=== PATIENT | male | born 1955 | race African-American/Black ===

== ENCOUNTER 2018-03-12 11:06 | Day surgery (SDC) | payer BC, OTHER ==
[~2018-03-12] VITALS: Ht 195.6 cm; Wt 96.0 kg
[2018-03-12 11:34] LABS: BASOPHILS % 0.4 % (0.0-2.0); EOSINOPHILS % 0.6 % (0.0-5.0); HEMOGLOBIN. 12.9 g/dL (14.0-18.0); LYMPHOCYTES % 23.5 % (20.0-50.0); MEAN CORPUSCULAR HEMOGLOBIN 34.5 pg (28.0-32.0); MEAN CORPUSCULAR VOLUME 98.9 fL (80.0-94.0); MEAN PLATELET VOLUME 7.4 fl (7.4-10.4); MONOCYTES % 9.9 % (2.0-8.0); NEUTROPHILS % 65.6 % (40.0-76.0); PLATELET 224 x1000/uL (130-400); RED BLOOD CELL COUNT 3.74 mill/uL (4.7-6.1); RED CELL DISTRIBUTION WIDTH 13.5 % (11.6-14.6)
[2018-03-12 11:39] LABS: CHLORIDE 111 mEq/L (98-107)
[2018-03-12 11:42] LABS: PARTIAL THROMBOPLASTIN TIME 23.5 sec (23.4-31.0); PROTHROMBIN TIME 10.5 sec (9.4-11.6)
[2018-03-12 11:56] VITALS: BP 151/101
[2018-03-12] MEDS ORDERED: PROPOFOL 200MG/20ML VIAL IV ONE (12:31)
[2018-03-12] MEDS ORDERED: FENTANYL CITRATE/PF 50MCG/ML 2ML VIAL ONE (12:31)
[2018-03-12] MEDS ORDERED: GLYCOPYRROLATE 0.2 MG/ML 2ML VIAL ONE (12:32)
[2018-03-12] MEDS ORDERED: MIDAZOLAM HCL 2 MG/2 ML VIAL ONE ×2 (12:32→12:51)
[2018-03-12] MEDS ORDERED: TRIAMCINOLONE ACETONIDE 40MG/ML 1ML VIAL ONE (12:33)
[2018-03-12] MEDS ORDERED: LIDOCAINE HCL/PF 1% 10 MG/ML 5ML VIAL ONE (12:43)
[2018-03-12] MEDS ORDERED: DEXAMETHASONE 4MG/ML 1ML VIAL ONE (12:55)
[2018-03-12] MEDS ORDERED: CEFAZOLIN SODIUM 1000MG/VIAL ONE (12:55)
[2018-03-12] MEDS ORDERED: EPINEPHRINE 1:1000 1 MG/ML AMP ONE (13:08)
[2018-03-12] MEDS ORDERED: SODIUM CHLORIDE 0.9% 1,000 ML IV ONE (13:18)
[2018-03-12] MEDS ORDERED: LABETALOL HCL 5MG/ML VIAL 20ML IV ONE (13:19)
[2018-03-12] MEDS ORDERED: ONDANSETRON HCL 4MG/2ML VIAL IV PRN (13:30)
[2018-03-12] MEDS ORDERED: LIDOCAINE HCL 2%/EPINEPHRINE 1:100,000 20 ML VIAL INFIL ONE (15:14)
[2018-03-12] MEDS ORDERED: NEO/POLYMYX B SULF/DEXAMETH OPHTH OINT 3.5GM ONE (15:14)
[2018-03-12] MEDS ORDERED: BALANCED SALT IRRIG SOLN 15ML ONE (15:14)
[2018-03-12] MEDS ORDERED: ACETYLCHOLINE CHLORIDE INTRAOCULAR SOLUTION 1:100 ELECTROLYTE DILUENT IO ONE (15:14)
[2018-03-12] MEDS ORDERED: PREDNISOLONE ACETATE 1% OPHTH DROPS 1ML ONE (15:14)
[2018-03-12] MEDS ORDERED: BUPIVACAINE HCL/PF 0.75% (7.5MG/ML) 10ML ONE (15:14)
[2018-03-12] MEDS ORDERED: TETRACAINE 0.5% OPHTH DROPS 4ML ONE (15:14)
[2018-03-12] MEDS ORDERED: CIPROFLOXACIN 0.3% OPHTH SOLN 2.5ML ONE (15:14)
== END 2018-03-12 13:20 | disposition home or self-care (01) ==
LOC: ER 11:41 → OR 12:00 → ER 12:09 → OR 13:20 → CANBEDREQ 16:17
PROVIDERS: ATTEND Ophthalmology
DX: E11.39 Type 2 diabetes mellitus with other diabetic ophthalmic complication (principal); H40.89 Other specified glaucoma; I10 Essential (primary) hypertension; Z88.0 Allergy status to penicillin; Z79.899 Other long term (current) drug therapy; Z98.890 Other specified postprocedural states; Z79.01 Long term (current) use of anticoagulants
CPT/HCPCS: 36415; 66170; 71045; 80053; 85025; 85610; 85730; 93005; J0690; J1100; J2250; J3010; J3301; J3490; J2704

== ENCOUNTER 2018-11-02 17:01 | Inpatient (IN) | payer OTHER ==
[~2018-11-02] VITALS: Ht 195.6 cm; Wt 91.9 kg
[~2018-11-02 17:01] MED LIST: AMLO10TA80 MT; BIMA2.5D4 EACHEYE; BRIM10DR2 EACHEYE; DORZ10DR9 EACHEYE; METH50TA5 PO; PRED10TA23 MT; SULF500T8 PO
[2018-11-02] MEDS ORDERED: AZAT50TA24 MT (17:42)
[2018-11-02] MEDS ORDERED: METF-414 MT (17:42)
[2018-11-02 22:59] LABS: BASOPHILS % 0.1 % (0.0-2.0); EOSINOPHILS % 0.1 % (0.0-5.0); HEMATOCRIT. 31.9 % (42.0-52.0); HEMOGLOBIN. 10.5 g/dL (14.0-18.0); LYMPHOCYTES % 6.8 % (20.0-50.0); MEAN CORPUSCULAR HEMOGLOBIN 34.1 pg (28.0-32.0); MEAN CORPUSCULAR VOLUME 103.5 fL (80.0-94.0); MEAN PLATELET VOLUME 7.4 fl (7.4-10.4); MONOCYTES % 6.1 % (2.0-8.0); NEUTROPHILS % 86.9 % (40.0-76.0); PLATELET 152 x1000/uL (130-400); RED BLOOD CELL COUNT 3.08 mill/uL (4.7-6.1); RED CELL DISTRIBUTION WIDTH 16.1 % (11.6-14.6)
[2018-11-02 23:01] LABS: CLARITY URINE TURBID (CLEAR); COLOR URINE ORANGE (YELLOW); KETONES URINE NEGATIVE (NEGATIVE); LEUKOCYTE ESTERASE URINE 2+ (NEGATIVE); NITRITE URINE POSITIVE (NEGATIVE); OCCULT BLOOD URINE 2+ (NEGATIVE); PROTEIN URINE 2+ (NEGATIVE); SPECIFIC GRAVITY URINE 1.021 (1.005-1.030); UROBILINOGEN URINE 0.2 E.U./dL (0.2-1.0)
[2018-11-02 23:02] LABS: CHLORIDE 105 mEq/L (98-107)
[2018-11-02 23:05] LABS: INR 1.1; PROTHROMBIN TIME 11.3 sec (9.1-11.1)
[2018-11-03] MEDS ORDERED: IOHEXOL-300 100 ML BOTTLE ONE (04:47)
[2018-11-03] MEDS ORDERED: PIPERACILLIN/TAZ 3.375G PREMIX 50 ML IV ONE (05:15)
[2018-11-03] MEDS ORDERED: HEPARIN 25,000 UNITS PREMIX 500 ML IV PRN (06:45)
[2018-11-03] MEDS ORDERED: HEPARIN 5000 UNITS/ML VIAL IV SCH (06:45)
[2018-11-03] MEDS ORDERED: HEPARIN 5000 UNITS/ML VIAL IV ONE (07:30)
[2018-11-03] MEDS ORDERED: MAGNESIUM/ALUMINUM HYDROXIDE/SIMETHICONE 30ML UDC PO PRN (10:00)
[2018-11-03] MEDS ORDERED: SENNOSIDES/DOCUSATE SOD 8.6/50MG TABLET PO PRN (10:00)
[2018-11-03] MEDS ORDERED: ONDANSETRON HCL 4MG/2ML INJ IV PRN (10:00)
[2018-11-03] MEDS ORDERED: HYDROCODONE/ACETAMINOPHEN 5/325MG TABLET PO PRN (10:00)
[2018-11-03] MEDS ORDERED: CLONIDINE 0.1MG TABLET PO PRN (10:00)
[2018-11-03] MEDS ORDERED: ACETAMINOPHEN 325MG TABLET PO PRN (10:00)
[2018-11-03] MEDS ORDERED: IPRATROPIUM/ALBUTEROL 0.5-3(2.5)MG/3ML NEB INH PRN (10:00)
[2018-11-03 10:38] LABS: INR 1.1; PARTIAL THROMBOPLASTIN TIME 27.3 sec (23.4-31.0); PROTHROMBIN TIME 11.5 sec (9.1-11.1)
[2018-11-03] MEDS ORDERED: PIPERACILLIN/TAZ 3.375G PREMIX 50 ML IV SCH (11:30)
[2018-11-03 14:43] VITALS: BP 134/93
[2018-11-03] MEDS ORDERED: IOHEXOL-350 100 ML BOTTLE ONE (15:14)
[2018-11-03] MEDS: PANTOPRAZOLE SODIUM 40 MG/VIAL IV SCH (16:34)
[2018-11-03] MEDS: PREDNISONE 10MG TABLET PO SCH (16:35)
[2018-11-03] MEDS: AZATHIOPRINE 50MG TABLET PO SCH (16:35)
[2018-11-03] MEDS: SULFASALAZINE 500MG TABLET PO SCH ×2 (16:35→21:10)
[2018-11-03] MEDS: FERROUS SULFATE 325MG TABLET PO SCH (16:35)
[2018-11-03] MEDS: BRIMONIDINE 0.2% OPHTH DROPS 5ML RIGHTEYE SCH ×2 (16:39→21:12)
[2018-11-03] MEDS: DORZOLAMIDE 2% OPHTH 10 ML BOTTLE RIGHTEYE SCH ×2 (16:42→21:12)
[2018-11-03] MEDS: LEVOFLOXACIN 500MG PREMIX 100 ML IV SCH (16:43)
[2018-11-03 18:00] VITALS: BP 119/85
[2018-11-03 20:48] VITALS: BP 142/85
[2018-11-03] MEDS: METHAZOLAMIDE 50MG TABLET PO SCH (21:10)
[2018-11-03] MEDS: LATANOPROST 0.005% OPHTH DROPS 2.5ML RIGHTEYE SCH (21:11)
[2018-11-03] MEDS: TIMOLOL MALEATE 0.25% OPHTH DROPS 5ML RIGHTEYE SCH (21:11)
[2018-11-03 22:00] VITALS: BP 128/79
[2018-11-04] VITALS (12 sets, daily range): BP systolic 129–159; BP diastolic 76–98
[2018-11-04] MEDS: BRIMONIDINE 0.2% OPHTH DROPS 5ML RIGHTEYE SCH ×3 (06:03→21:47)
[2018-11-04] MEDS: DORZOLAMIDE 2% OPHTH 10 ML BOTTLE RIGHTEYE SCH ×3 (06:03→21:47)
[2018-11-04 06:25] LABS: BASOPHILS % 0.1 % (0.0-2.0); EOSINOPHILS % 0.3 % (0.0-5.0); HEMATOCRIT. 29.1 % (42.0-52.0); HEMOGLOBIN. 9.6 g/dL (14.0-18.0); LYMPHOCYTES % 9.9 % (20.0-50.0); MEAN CORPUSCULAR HEMOGLOBIN 34.1 pg (28.0-32.0); MEAN CORPUSCULAR VOLUME 102.9 fL (80.0-94.0); MEAN PLATELET VOLUME 7.3 fl (7.4-10.4); MONOCYTES % 9.2 % (2.0-8.0); NEUTROPHILS % 80.5 % (40.0-76.0); PLATELET 144 x1000/uL (130-400); RED BLOOD CELL COUNT 2.83 mill/uL (4.7-6.1); RED CELL DISTRIBUTION WIDTH 15.7 % (11.6-14.6)
[2018-11-04 06:26] LABS: CHLORIDE 106 mEq/L (98-107)
[2018-11-04 06:33] LABS: LDL CHOLESTEROL 156 mg/dL (5-100)
[2018-11-04 06:34] LABS: T4 FREE 0.93 ng/dL (0.76-1.46)
[2018-11-04 06:35] LABS: HDL CHOLESTEROL 52 mg/dL (40-59)
[2018-11-04] MEDS ORDERED: OMEPRAZOLE 20MG CAPSULE EXTENDED RELEASE PO SCH (06:50)
[2018-11-04] MEDS: SULFASALAZINE 500MG TABLET PO SCH ×4 (09:12→21:47)
[2018-11-04] MEDS: DOCUSATE SODIUM 100MG CAPSULE PO PRN ×2 (09:12→17:23)
[2018-11-04] MEDS: PREDNISONE 10MG TABLET PO SCH (09:12)
[2018-11-04] MEDS: AMLODIPINE 10MG TABLET PO SCH (09:12)
[2018-11-04] MEDS: AZATHIOPRINE 50MG TABLET PO SCH (09:12)
[2018-11-04] MEDS: METHAZOLAMIDE 50MG TABLET PO SCH ×2 (09:12→21:46)
[2018-11-04] MEDS: PANTOPRAZOLE SODIUM 40 MG/VIAL IV SCH (09:12)
[2018-11-04] MEDS: FERROUS SULFATE 325MG TABLET PO SCH ×3 (09:13→17:23)
[2018-11-04] MEDS: TIMOLOL MALEATE 0.25% OPHTH DROPS 5ML RIGHTEYE SCH ×2 (09:14→21:47)
[2018-11-04] MEDS ORDERED: LOSARTAN POTASSIUM 25 MG TABLET PO SCH (15:00)
[2018-11-04] MEDS: LEVOFLOXACIN 500MG PREMIX 100 ML IV SCH (16:28)
[2018-11-04] MEDS ORDERED: DEXTROSE 50% WATER 50ML SYRINGE IV PRN (16:30)
[2018-11-04] MEDS: BLOOD SUGAR DIAGNOSTIC STRIP TEST SCH ×2 (17:09→21:48)
[2018-11-04] MEDS: INSULIN LISPRO 100 UNITS/ML SUBCUT SCH ×2 (17:14→21:00)
[2018-11-04] MEDS: MESALAMINE 400 MG CAPSULE.DR PO SCH (17:20)
[2018-11-04] MEDS ORDERED: ATORVASTATIN CALCIUM 20MG TABLET PO SCH (21:00)
[2018-11-04] MEDS: LOSARTAN POTASSIUM 50 MG TABLET PO SCH (21:47)
[2018-11-04] MEDS: LATANOPROST 0.005% OPHTH DROPS 2.5ML RIGHTEYE SCH (21:48)
[2018-11-05] VITALS (11 sets, daily range): BP systolic 109–158; BP diastolic 64–99
[2018-11-05] MEDS: BRIMONIDINE 0.2% OPHTH DROPS 5ML RIGHTEYE SCH ×2 (06:40→14:00)
[2018-11-05] MEDS: BLOOD SUGAR DIAGNOSTIC STRIP TEST SCH ×2 (06:40→11:41)
[2018-11-05] MEDS: DORZOLAMIDE 2% OPHTH 10 ML BOTTLE RIGHTEYE SCH ×2 (06:40→14:00)
[2018-11-05 06:46] LABS: BASOPHILS % 0.4 % (0.0-2.0); EOSINOPHILS % 1.2 % (0.0-5.0); HEMATOCRIT. 33.5 % (42.0-52.0); LYMPHOCYTES % 18.4 % (20.0-50.0); MEAN CORPUSCULAR HEMOGLOBIN 33.9 pg (28.0-32.0); MEAN CORPUSCULAR VOLUME 103.2 fL (80.0-94.0); MEAN PLATELET VOLUME 7.8 fl (7.4-10.4); MONOCYTES % 7.7 % (2.0-8.0); NEUTROPHILS % 72.3 % (40.0-76.0); PLATELET 171 x1000/uL (130-400); RED BLOOD CELL COUNT 3.25 mill/uL (4.7-6.1); RED CELL DISTRIBUTION WIDTH 15.3 % (11.6-14.6)
[2018-11-05 06:51] LABS: CHLORIDE 105 mEq/L (98-107)
[2018-11-05] MEDS: INSULIN LISPRO 100 UNITS/ML SUBCUT SCH ×2 (07:20→12:20)
[2018-11-05] MEDS: FERROUS SULFATE 325MG TABLET PO SCH ×2 (08:16→13:59)
[2018-11-05] MEDS: PANTOPRAZOLE SODIUM 40 MG/VIAL IV SCH (08:16)
[2018-11-05] MEDS: LOSARTAN POTASSIUM 50 MG TABLET PO SCH (08:16)
[2018-11-05] MEDS: METHAZOLAMIDE 50MG TABLET PO SCH (08:16)
[2018-11-05] MEDS: MESALAMINE 400 MG CAPSULE.DR PO SCH ×2 (08:16→13:59)
[2018-11-05] MEDS: AMLODIPINE 10MG TABLET PO SCH (08:16)
[2018-11-05] MEDS: SULFASALAZINE 500MG TABLET PO SCH ×2 (08:17→13:59)
[2018-11-05] MEDS: TIMOLOL MALEATE 0.25% OPHTH DROPS 5ML RIGHTEYE SCH (08:17)
[2018-11-05] MEDS: AZATHIOPRINE 50MG TABLET PO SCH (08:17)
[2018-11-05 08:24] LABS: HAPTOGLOBIN 276 mg/dL (30-200)
[2018-11-05] MEDS ORDERED: PREDNISONE 20MG TABLET PO SCH (09:00)
[2018-11-10] MEDS ORDERED: FERR300S PO (22:43)
[2018-11-10] MEDS ORDERED: OMEP20CA10 PO (22:43)
[2018-11-10] MEDS ORDERED: BRIM10DR2 OP (22:43)
[2018-11-10] MEDS ORDERED: SENN-155 PO (22:43)
[2018-11-10] MEDS ORDERED: ATOR20TA65 PO (22:43)
[2018-11-10] MEDS ORDERED: LATA2.5D2 EACHEYE (22:43)
== END 2018-11-05 16:10 | disposition home or self-care (01) | DRG 690 ==
LOC: ER 17:05 → EDBEDREQSVC 11-03 05:22 → EDBEDREQTM 11-03 05:22 → 3WST 11-03 13:40 → EDBEDREQSVC 11-03 13:42 → ENRESERV 11-03 13:49
PROVIDERS: ADMIT Internal Medicine; ATTEND Internal Medicine
DX: N13.6 Pyonephrosis (principal); K51.911 Ulcerative colitis, unspecified with rectal bleeding; D68.9 Coagulation defect, unspecified; E11.9 Type 2 diabetes mellitus without complications; D53.9 Nutritional anemia, unspecified; E78.5 Hyperlipidemia, unspecified; H40.9 Unspecified glaucoma; I10 Essential (primary) hypertension; I25.10 Atherosclerotic heart disease of native coronary artery without angina pectoris; R31.0 Gross hematuria; K40.90 Unilateral inguinal hernia, without obstruction or gangrene, not specified as recurrent; N40.1 Benign prostatic hyperplasia with lower urinary tract symptoms; I86.1 Scrotal varices; Z79.52 Long term (current) use of systemic steroids; Z86.711 Personal history of pulmonary embolism; Z86.718 Personal history of other venous thrombosis and embolism; Z88.0 Allergy status to penicillin; Z79.84 Long term (current) use of oral hypoglycemic drugs; Z79.899 Other long term (current) drug therapy
CPT/HCPCS: 36415; 71045; 71275; 74176; 74177; 76870; 80048; 80061; 82962; 83010; 83615; 84439; 84443; 84481; 93005; 93306; 93970; 93976; 96365; 96375; 99285; C9113; J1644; J1956; J2543; J7040; J7050; J7500; J7512; Q9967

== ENCOUNTER 2018-11-27 15:13 | Emergency (ER) | payer OTHER ==
[~2018-11-27] VITALS: Ht 195.6 cm; Wt 90.0 kg
[~2018-11-27 15:13] MED LIST changes: +ATOR20TA65 PO; +AZAT50TA24 MT; -BIMA2.5D4 EACHEYE; -BRIM10DR2 EACHEYE; +BRIM10DR2 OP; -DORZ10DR9 EACHEYE; +FERR300S PO; +LATA2.5D2 EACHEYE; +OMEP20CA10 PO; +SENN-155 PO
[2018-11-27 17:10] LABS: HEMATOCRIT. 25.9 % (42.0-52.0); HEMOGLOBIN. 8.7 g/dL (14.0-18.0); MEAN CORPUSCULAR HEMOGLOBIN 34.6 pg (28.0-32.0); MEAN CORPUSCULAR VOLUME 102.4 fL (80.0-94.0); MEAN PLATELET VOLUME 6.8 fl (7.4-10.4); PLATELET 292 x1000/uL (130-400); RED BLOOD CELL COUNT 2.53 mill/uL (4.7-6.1); RED CELL DISTRIBUTION WIDTH 15.7 % (11.6-14.6)
[2018-11-27 17:17] LABS: CHLORIDE 105 mEq/L (98-107); INR 1.1; PROTHROMBIN TIME 10.8 sec (9.1-11.1)
[2018-11-27 17:34] LABS: PLATELET ESTIMATE NORMAL
[2018-11-27 18:18] LABS: CLARITY URINE CLEAR (CLEAR); COLOR URINE ORANGE (YELLOW); KETONES URINE NEGATIVE (NEGATIVE); LEUKOCYTE ESTERASE URINE TRACE (NEGATIVE); NITRITE URINE NEGATIVE (NEGATIVE); OCCULT BLOOD URINE 3+ (NEGATIVE); PH URINE 5.5 (4.5-8.0); PROTEIN URINE 1+ (NEGATIVE); SPECIFIC GRAVITY URINE 1.007 (1.005-1.030); UROBILINOGEN URINE 0.2 E.U./dL (0.2-1.0)
[2018-11-27 19:42] VITALS: BP 125/79
== END 2018-11-27 19:43 | disposition home or self-care (01) ==
LOC: ER 15:13
DX: M79.89 Other specified soft tissue disorders (principal); I10 Essential (primary) hypertension; Z88.0 Allergy status to penicillin; Z86.718 Personal history of other venous thrombosis and embolism
CPT/HCPCS: 36415; 93970; 99284

== ENCOUNTER 2019-01-28 08:33 | Emergency (ER) | payer OTHER | END 2019-01-28 09:05 | disposition left against medical advice (07) | LOC: ER 08:55 | DX: H57.89 Other specified disorders of eye and adnexa (principal); Z53.21 Procedure and treatment not carried out due to patient leaving prior to being seen by health care provider ==

== ENCOUNTER 2019-03-16 17:03 | Inpatient (IN) | payer MEDICAID, OTHER ==
[~2019-03-16] VITALS: Ht 195.6 cm; Wt 79.8 kg
[2019-03-16] MEDS ORDERED: SODIUM CHLORIDE 0.9% 1,000 ML IV ONE (18:35)
[2019-03-16] MEDS ORDERED: KETOROLAC 30MG/ML VIAL IV STA (18:35)
[2019-03-16] MEDS ORDERED: ONDANSETRON HCL 4MG/2ML INJ IV STA (18:35)
[2019-03-16] MEDS ORDERED: MORPHINE SULFATE 4 MG/ML CPJ (NOT FOR IM USE) IV STA (18:35)
[2019-03-16 18:52] LABS: BASOPHILS % 0.7 % (0.0-2.0); EOSINOPHILS % 2.5 % (0.0-5.0); HEMATOCRIT. 35.3 % (42.0-52.0); HEMOGLOBIN. 12.1 g/dL (14.0-18.0); LYMPHOCYTES % 19.4 % (20.0-50.0); MEAN CORPUSCULAR HEMOGLOBIN 33.4 pg (28.0-32.0); MEAN CORPUSCULAR VOLUME 97.3 fL (80.0-94.0); MEAN PLATELET VOLUME 7.8 fl (7.4-10.4); MONOCYTES % 13.8 % (2.0-8.0); NEUTROPHILS % 63.6 % (40.0-76.0); PLATELET 284 x1000/uL (130-400); RED BLOOD CELL COUNT 3.63 mill/uL (4.7-6.1); RED CELL DISTRIBUTION WIDTH 15.2 % (11.6-14.6)
[2019-03-16 18:58] LABS: CHLORIDE 99 mEq/L (98-107)
[2019-03-16 19:01] LABS: INR 1.1; PARTIAL THROMBOPLASTIN TIME 35.5 sec (23.4-31.0); PROTHROMBIN TIME 11.5 sec (9.6-11.0)
[2019-03-16] MEDS ORDERED: LATA5DRO EACHEYE (19:04)
[2019-03-16] MEDS ORDERED: CARB15DR2 EACHEYE (19:04)
[2019-03-16] MEDS ORDERED: BRIM10DR2 EACHEYE (19:04)
[2019-03-16] MEDS ORDERED: NETA2.5D OP (19:04)
[2019-03-16 19:08] LABS: CREATINE KINASE 140 IU/L (39-308); CREATINE KINASE MB FRACTION 1.6 ng/mL (0.5-3.6); T4 FREE 1.41 ng/dL (0.76-1.46)
[2019-03-16] MEDS ORDERED: ONDANSETRON HCL 4MG/2ML INJ IV PRN (23:30)
[2019-03-16] MEDS ORDERED: MAGNESIUM/ALUMINUM HYDROXIDE/SIMETHICONE 30ML UDC PO PRN (23:30)
[2019-03-16] MEDS ORDERED: IPRATROPIUM/ALBUTEROL 0.5-3(2.5)MG/3ML NEB INH PRN (23:30)
[2019-03-16] MEDS ORDERED: CLONIDINE 0.1MG TABLET PO PRN (23:30)
[2019-03-16] MEDS ORDERED: ACETAMINOPHEN 325MG TABLET PO PRN (23:30)
[2019-03-16] MEDS ORDERED: DOCUSATE SODIUM 100MG CAPSULE PO PRN (23:30)
[2019-03-16] MEDS ORDERED: GUAIFENESIN 200MG/10ML SUGAR FREE UDC PO PRN (23:30)
[2019-03-16 23:53] LABS: CHLORIDE 102 mEq/L (98-107)
[2019-03-17 02:30] VITALS: BP 142/81
[2019-03-17] MEDS ORDERED: BRIM10DR2 EACHEYE (04:17)
[2019-03-17] MEDS ORDERED: FURO20TA4 MT (04:17)
[2019-03-17] MEDS ORDERED: TAMS0.4C31 PO (04:17)
[2019-03-17] MEDS ORDERED: APIX5TAB PO (04:17)
[2019-03-17] MEDS ORDERED: GABA300S PO (04:17)
[2019-03-17] MEDS ORDERED: METO100T16 PO (04:17)
[2019-03-17] MEDS ORDERED: CARB10DR EACHEYE (04:17)
[2019-03-17] MEDS: HYDROCODONE/ACETAMINOPHEN 5/325MG TABLET PO PRN (06:47)
[2019-03-17 07:28] LABS: BASOPHILS % 0.7 % (0.0-2.0); LYMPHOCYTES % 22.4 % (20.0-50.0); MEAN CORPUSCULAR HEMOGLOBIN 32.7 pg (28.0-32.0); MEAN CORPUSCULAR VOLUME 98.2 fL (80.0-94.0); MEAN PLATELET VOLUME 7.8 fl (7.4-10.4); MONOCYTES % 14.4 % (2.0-8.0); NEUTROPHILS % 58.5 % (40.0-76.0); PLATELET 269 x1000/uL (130-400); RED BLOOD CELL COUNT 3.36 mill/uL (4.7-6.1); RED CELL DISTRIBUTION WIDTH 14.9 % (11.6-14.6)
[2019-03-17 07:40] LABS: LDL CHOLESTEROL 142 mg/dL (5-100)
[2019-03-17 07:41] LABS: CREATINE KINASE 162 IU/L (39-308)
[2019-03-17 07:42] LABS: HDL CHOLESTEROL 35 mg/dL (40-59)
[2019-03-17 07:43] LABS: CREATINE KINASE MB FRACTION 1.8 ng/mL (0.5-3.6)
[2019-03-17 07:44] LABS: T4 FREE 1.27 ng/dL (0.76-1.46)
[2019-03-17 08:00] VITALS: BP 116/69
[2019-03-17] MEDS: ASPIRIN 81MG EC TABLET PO SCH (08:41)
[2019-03-17 11:56] VITALS: BP 112/71
[2019-03-17] MEDS ORDERED: REGADENOSON 0.4 MG/5 ML IV ONE (14:30)
[2019-03-17 14:52] LABS: *AMPHETAMINES SCREEN URINE NEGATIVE (NEGATIVE); *BARBITURATES SCREEN URINE NEGATIVE (NEGATIVE); *COCAINE SCREEN URINE NEGATIVE (NEGATIVE)
[2019-03-17 14:53] LABS: *BENZODIAZEPINES SCREEN URINE NEGATIVE (NEGATIVE); METHADONE URINE SCREEN NEGATIVE (NEGATIVE); OPIATES URINE SCREEN PRESUMTIVE POSITIVE (NEGATIVE); PHENCYCLIDINE URINE SCREEN NEGATIVE (NEGATIVE)
[2019-03-17 14:54] LABS: CANNABINOID URINE SCREEN NEGATIVE (NEGATIVE)
[2019-03-17] MEDS ORDERED: AMLODIPINE 2.5MG TABLET PO SCH (15:00)
[2019-03-17 15:56] VITALS: BP 131/73
[2019-03-17 16:00] VITALS: BP 131/73
[2019-03-17 18:03] LABS: CREATINE KINASE 177 IU/L (39-308); CREATINE KINASE MB FRACTION 1.8 ng/mL (0.5-3.6)
[2019-03-17] MEDS: APIXABAN 5 MG TABLET PO SCH (18:04)
[2019-03-17 20:00] VITALS: BP 130/82
[2019-03-17] MEDS ORDERED: ATORVASTATIN CALCIUM 10MG TABLET PO SCH (21:00)
[2019-03-18] VITALS: BP 130/78
[2019-03-18 04:00] VITALS: BP 100/67
[2019-03-18] MEDS: HYDROCODONE/ACETAMINOPHEN 5/325MG TABLET PO PRN (04:50)
[2019-03-18 06:22] LABS: BASOPHILS % 0.5 % (0.0-2.0); EOSINOPHILS % 3.6 % (0.0-5.0); HEMATOCRIT. 32.5 % (42.0-52.0); HEMOGLOBIN. 11.3 g/dL (14.0-18.0); LYMPHOCYTES % 21.3 % (20.0-50.0); MEAN CORPUSCULAR HEMOGLOBIN 33.3 pg (28.0-32.0); MEAN CORPUSCULAR VOLUME 96.3 fL (80.0-94.0); MEAN PLATELET VOLUME 7.5 fl (7.4-10.4); MONOCYTES % 14.9 % (2.0-8.0); NEUTROPHILS % 59.7 % (40.0-76.0); PLATELET 272 x1000/uL (130-400); RED BLOOD CELL COUNT 3.38 mill/uL (4.7-6.1); RED CELL DISTRIBUTION WIDTH 14.8 % (11.6-14.6)
[2019-03-18 07:34] LABS: CHLORIDE 102 mEq/L (98-107)
[2019-03-18 08:00] VITALS: BP 115/78
[2019-03-18] MEDS: ASPIRIN 81MG EC TABLET PO SCH (09:00)
[2019-03-18] MEDS ORDERED: OMEPRAZOLE 20MG CAPSULE EXTENDED RELEASE PO SCH (09:00)
[2019-03-18] MEDS ORDERED: FUROSEMIDE 20MG TABLET PO SCH (09:00)
[2019-03-18] MEDS ORDERED: TAMSULOSIN HCL 0.4MG SR CAPSULE PO SCH (09:00)
[2019-03-18] MEDS ORDERED: SENNOSIDES 8.6MG TABLET PO SCH (09:00)
[2019-03-18] MEDS ORDERED: METHAZOLAMIDE 50MG TABLET PO SCH (09:30)
[2019-03-18] MEDS ORDERED: REGADENOSON 0.4 MG/5 ML IV ONE (09:32)
[2019-03-18] MEDS ORDERED: BRIMONIDINE 0.2% OPHTH DROPS 5ML BOTHEYE SCH (10:30)
[2019-03-18] MEDS ORDERED: AZATHIOPRINE 50MG TABLET PO SCH (11:00)
[2019-03-18] MEDS: SULFASALAZINE 500MG TABLET PO SCH ×2 (11:11→13:00)
[2019-03-18] MEDS: APIXABAN 5 MG TABLET PO SCH (11:17)
[2019-03-18] MEDS ORDERED: POTASSIUM CHLORIDE 20MEQ TABLET SR PO NR (11:30)
[2019-03-18 11:50] VITALS: BP 106/72
[2019-03-18] MEDS ORDERED: DILTIAZEM HCL 30MG TABLET PO SCH (12:00)
[2019-03-18] MEDS ORDERED: FERROUS SULFATE 325MG TABLET PO SCH (12:40)
[2019-03-18] MEDS ORDERED: GABAPENTIN 300MG CAPSULE PO SCH (14:00)
[2019-03-18 16:00] VITALS: BP 106/74
[2019-03-18 17:16] VITALS: BP 106/74
[2019-03-18] MEDS ORDERED: LATANOPROST 0.005% OPHTH DROPS 2.5ML EACHEYE SCH (21:00)
== END 2019-03-18 18:30 | disposition home or self-care (01) | DRG 206 ==
LOC: ER 18:13 → EDBEDREQ 18:39 → 8WST 22:00 → EDBEDREQ 22:03 → EDBEDREQTM 22:03 → ENRESERV 03-17 01:30
PROVIDERS: ADMIT Internal Medicine; ATTEND Internal Medicine
DX: M94.0 Chondrocostal junction syndrome [Tietze] (principal); K51.90 Ulcerative colitis, unspecified, without complications; I13.0 Hypertensive heart and chronic kidney disease with heart failure and stage 1 through stage 4 chronic kidney disease, or unspecified chronic kidney disease; I47.1 Supraventricular tachycardia; E78.5 Hyperlipidemia, unspecified; N18.9 Chronic kidney disease, unspecified; E03.9 Hypothyroidism, unspecified; I44.0 Atrioventricular block, first degree; I50.9 Heart failure, unspecified; D64.9 Anemia, unspecified; I45.10 Unspecified right bundle-branch block; H40.9 Unspecified glaucoma; N40.0 Benign prostatic hyperplasia without lower urinary tract symptoms; Z79.01 Long term (current) use of anticoagulants; Z95.828 Presence of other vascular implants and grafts; Z79.52 Long term (current) use of systemic steroids; Z86.711 Personal history of pulmonary embolism; Z86.718 Personal history of other venous thrombosis and embolism; Z87.442 Personal history of urinary calculi; Z79.899 Other long term (current) drug therapy; Z88.0 Allergy status to penicillin
CPT/HCPCS: 36415; 71045; 78452; 80048; 80061; 80305; 82533; 82550; 82553; 83880; 84439; 84443; 84481; 84484; 85651; 86431; 93005; 93017; 93306; 93970; 96374; 96375; 99285; A9500; J1885; J2270; J2405; J2785; J7030; J7500

== ENCOUNTER 2019-08-25 13:05 | Inpatient (IN) | payer OTHER ==
[~2019-08-25] VITALS: Ht 195.6 cm; Wt 89.8 kg
[~2019-08-25 13:05] MED LIST changes: +APIX5TAB PO; +BRIM10DR2 *; +BRIM10DR2 EACHEYE; +CARB10DR EACHEYE; +CARB15DR2 EACHEYE; +FURO20TA4 MT; +GABA300S PO; +LATA5DRO EACHEYE; +METO100T16 PO; +NETA2.5D OP; -OMEP20CA10 PO; +OMEP20CA5 PO; +PIPERACILLIN/TAZOBACTAM 3.375 G in DEXT 5% WATER 100 ML IV SCH; +TAMS0.4C31 PO
[2019-08-25] MEDS ORDERED: SODIUM CHLORIDE 0.9% 1,000 ML IV ONE (13:57)
[2019-08-25] MEDS ORDERED: ONDANSETRON HCL 4MG/2ML INJ IV STA (13:57)
[2019-08-25] MEDS ORDERED: KETOROLAC 30MG/ML VIAL IV STA (13:57)
[2019-08-25] MEDS ORDERED: MORPHINE SULFATE 4 MG/ML CPJ (NOT FOR IM USE) IV STA (13:57)
[2019-08-25 14:29] LABS: HEMATOCRIT. 33.3 % (42.0-52.0); HEMOGLOBIN. 11.3 g/dL (14.0-18.0); MEAN CORPUSCULAR HEMOGLOBIN 33.7 pg (28.0-32.0); MEAN CORPUSCULAR VOLUME 99.6 fL (80.0-94.0); MEAN PLATELET VOLUME 8.7 fl (7.4-10.4); PLATELET 240 x1000/uL (130-400); RED BLOOD CELL COUNT 3.35 mill/uL (4.7-6.1); RED CELL DISTRIBUTION WIDTH 12.9 % (11.6-14.6)
[2019-08-25 14:35] LABS: CHLORIDE 92 mEq/L (98-107)
[2019-08-25 14:39] LABS: ETHANOL BLOOD < 10 mg/dL
[2019-08-25 14:49] LABS: D-DIMER 16.91 mg/L FEU (<0.50); INR 2.3; PROTHROMBIN TIME 23.4 sec (9.6-11.0)
[2019-08-25] MEDS ORDERED: LEVOFLOXACIN 750MG PREMIX 150 ML IV ONE (15:00)
[2019-08-25] MEDS ORDERED: METRONIDAZOLE 500 MG PREMIX 100 ML IV ONE (15:00)
[2019-08-25] MEDS ORDERED: SODIUM CHLORIDE 0.9% 1000ML BAG (SEPSIS BOLUS) IV ONE (15:00)
[2019-08-25 15:07] LABS: PLATELET ESTIMATE NORMAL
[2019-08-25] MEDS ORDERED: HYDROCODONE/ACETAMINOPHEN 5/325MG TABLET PO PRN (17:45)
[2019-08-25] MEDS ORDERED: DOCUSATE SODIUM 100MG CAPSULE PO PRN (17:45)
[2019-08-25] MEDS ORDERED: LORAZEPAM 0.5MG TABLET PO PRN (17:45)
[2019-08-25] MEDS ORDERED: IPRATROPIUM/ALBUTEROL 0.5-3(2.5)MG/3ML NEB HHN PRN (17:45)
[2019-08-25] MEDS ORDERED: CLONIDINE 0.1MG TABLET PO PRN (17:45)
[2019-08-25 18:36] LABS: TOTAL IRON BINDING CAPACITY 173 ug/dL (250-450)
[2019-08-25 18:45] LABS: PROSTRATE SPECIFIC AG TOTAL 5.41 ng/mL (0.0-4.0)
[2019-08-25] MEDS ORDERED: IOHEXOL-300 100 ML BOTTLE ONE (19:05)
[2019-08-25 22:15] LABS: CLARITY URINE TURBID (CLEAR); COLOR URINE DARK YELLOW (YELLOW); KETONES URINE TRACE (NEGATIVE); LEUKOCYTE ESTERASE URINE 1+ (NEGATIVE); NITRITE URINE NEGATIVE (NEGATIVE); OCCULT BLOOD URINE 3+ (NEGATIVE); PROTEIN URINE 2+ (NEGATIVE)
[2019-08-25 22:41] LABS: *BARBITURATES SCREEN URINE NEGATIVE (NEGATIVE)
[2019-08-25 22:42] LABS: *AMPHETAMINES SCREEN URINE NEGATIVE (NEGATIVE); *BENZODIAZEPINES SCREEN URINE NEGATIVE (NEGATIVE); *COCAINE SCREEN URINE NEGATIVE (NEGATIVE); CANNABINOID URINE SCREEN NEGATIVE (NEGATIVE); METHADONE URINE SCREEN NEGATIVE (NEGATIVE); OPIATES URINE SCREEN PRESUMTIVE POSITIVE (NEGATIVE); PHENCYCLIDINE URINE SCREEN NEGATIVE (NEGATIVE)
[2019-08-25 23:36] VITALS: BP 118/72
[2019-08-26] MEDS ORDERED: PIPERACILLIN/TAZOBACTAM 3.375 G in DEXT 5% WATER 100 ML IV SCH ×2
[2019-08-26] MEDS: SODIUM CHLORIDE 0.9% 1,000 ML IV SCH ×2 (00:57→18:51)
[2019-08-26] MEDS: ONDANSETRON HCL 4MG/2ML INJ IV PRN ×2 (03:00→13:47)
[2019-08-26] MEDS: ACETAMINOPHEN 325MG TABLET PO PRN (03:13)
[2019-08-26 04:00] VITALS: BP 135/80
[2019-08-26 06:57] LABS: HEMATOCRIT. 27.5 % (42.0-52.0); HEMOGLOBIN. 9.5 g/dL (14.0-18.0); MEAN CORPUSCULAR HEMOGLOBIN 33.7 pg (28.0-32.0); MEAN CORPUSCULAR VOLUME 97.8 fL (80.0-94.0); MEAN PLATELET VOLUME 8.1 fl (7.4-10.4); PLATELET 185 x1000/uL (130-400); RED BLOOD CELL COUNT 2.82 mill/uL (4.7-6.1)
[2019-08-26 08:00] VITALS: BP 112/75
[2019-08-26] MEDS ORDERED: GABAPENTIN SOLN 50MG/1ML UDC PO SCH (09:00)
[2019-08-26] MEDS: TAMSULOSIN HCL 0.4MG SR CAPSULE PO SCH (09:22)
[2019-08-26] MEDS: AMLODIPINE 10MG TABLET PO SCH (09:22)
[2019-08-26] MEDS ORDERED: PIPERACILLIN/TAZ 3.375G PREMIX 50 ML IV ONE (09:30)
[2019-08-26] MEDS: METHAZOLAMIDE 50MG TABLET PO SCH ×3 (09:33→17:00)
[2019-08-26] MEDS: PIPERACILLIN/TAZOBACTAM 3.375 G in DEXT 5% WATER 100 ML IV SCH ×2 (09:39→16:59)
[2019-08-26 12:00] VITALS: BP 100/67
[2019-08-26] MEDS ORDERED: PNEUMOCOCCAL 23-VAL P-SAC VAC 0.5 ML IM ONE (12:00)
[2019-08-26] MEDS ORDERED: INFLUENZA VIRUS VACCINE(AFLURIA) 0.5ML SYR IM ONE (12:00)
[2019-08-26] MEDS: APIXABAN 5 MG TABLET PO SCH ×2 (12:08→21:08)
[2019-08-26] MEDS ORDERED: MESALAMINE 250MG CAPSULE EXTENDED RELEASE PO SCH (13:30)
[2019-08-26] MEDS: MESALAMINE 400 MG CAPSULE.DR PO SCH (17:04)
[2019-08-26 17:21] LABS: PLATELET ESTIMATE NORMAL
[2019-08-26 17:57] LABS: HEMATOCRIT. 31.3 % (42.0-52.0); HEMOGLOBIN. 10.5 g/dL (14.0-18.0); MEAN CORPUSCULAR HEMOGLOBIN 33.2 pg (28.0-32.0); MEAN CORPUSCULAR VOLUME 99.1 fL (80.0-94.0); MEAN PLATELET VOLUME 8.2 fl (7.4-10.4); PLATELET 190 x1000/uL (130-400); RED BLOOD CELL COUNT 3.16 mill/uL (4.7-6.1); RED CELL DISTRIBUTION WIDTH 13.2 % (11.6-14.6)
[2019-08-26 18:00] VITALS: BP 121/65
[2019-08-26 19:11] LABS: PLATELET ESTIMATE NORMAL
[2019-08-26 20:00] VITALS: BP 118/71
[2019-08-26] MEDS: ATORVASTATIN CALCIUM 20MG TABLET PO SCH (21:08)
[2019-08-26] MEDS ORDERED: MEDICATION NOT ON FORMULARY EA (Brimonidine Tartrate/Timolol (Combigan Eye Drops) 1 DROP * SCH (21:45)
[2019-08-26] MEDS: TIMOLOL MALEATE 0.5% OPHTH DROPS 5ML RIGHTEYE SCH (23:02)
[2019-08-26] MEDS: BRIMONIDINE 0.2% OPHTH DROPS 5ML RIGHTEYE SCH (23:02)
[2019-08-27] MEDS: CEFEPIME 2,000 MG in DEXT 5% WATER 100 ML IV SCH ×3 (00:27→22:24)
[2019-08-27 00:51] VITALS: BP 124/78
[2019-08-27 04:00] VITALS: BP 117/77
[2019-08-27 07:12] LABS: HEMATOCRIT. 27.5 % (42.0-52.0); HEMOGLOBIN. 9.4 g/dL (14.0-18.0); MEAN CORPUSCULAR HEMOGLOBIN 33.5 pg (28.0-32.0); MEAN CORPUSCULAR VOLUME 98.3 fL (80.0-94.0); MEAN PLATELET VOLUME 7.6 fl (7.4-10.4); PLATELET 158 x1000/uL (130-400); RED BLOOD CELL COUNT 2.79 mill/uL (4.7-6.1); RED CELL DISTRIBUTION WIDTH 13.3 % (11.6-14.6)
[2019-08-27 07:59] LABS: HEPATITIS B SURFACE ANTIGEN NEGATIVE
[2019-08-27 08:00] VITALS: BP 123/75
[2019-08-27 08:28] LABS: HEPATITIS A AB IGM NEGATIVE (NEGATIVE)
[2019-08-27] MEDS: AMLODIPINE 10MG TABLET PO SCH (09:34)
[2019-08-27] MEDS: TAMSULOSIN HCL 0.4MG SR CAPSULE PO SCH (09:34)
[2019-08-27] MEDS: MESALAMINE 400 MG CAPSULE.DR PO SCH ×3 (09:34→18:07)
[2019-08-27] MEDS: TIMOLOL MALEATE 0.5% OPHTH DROPS 5ML RIGHTEYE SCH ×2 (09:35→20:55)
[2019-08-27] MEDS: APIXABAN 5 MG TABLET PO SCH ×2 (09:35→20:53)
[2019-08-27] MEDS: BRIMONIDINE 0.2% OPHTH DROPS 5ML RIGHTEYE SCH ×2 (09:35→20:55)
[2019-08-27] MEDS: ONDANSETRON HCL 4MG/2ML INJ IV PRN ×2 (09:43→17:05)
[2019-08-27 12:00] VITALS: BP 100/64
[2019-08-27] MEDS: GABAPENTIN 300MG CAPSULE PO SCH ×2 (13:30→18:07)
[2019-08-27] MEDS ORDERED: PSEUDOEPHEDRINE HCL 30MG TABLET PO PRN (15:00)
[2019-08-27] MEDS: METRONIDAZOLE 500 MG PREMIX 100 ML IV SCH ×2 (15:09→22:55)
[2019-08-27 16:00] VITALS: BP 122/77
[2019-08-27 16:52] LABS: PLATELET ESTIMATE NORMAL
[2019-08-27] MEDS: SODIUM CHLORIDE 0.9% 1,000 ML IV SCH (16:59)
[2019-08-27 20:00] VITALS: BP 123/69
[2019-08-27] MEDS: ATORVASTATIN CALCIUM 20MG TABLET PO SCH (20:53)
[2019-08-27] MEDS: FAMOTIDINE 20MG TABLET PO SCH (20:53)
[2019-08-27] MEDS: ACETAMINOPHEN 325MG TABLET PO PRN (20:53)
[2019-08-27] MEDS: LATANOPROST 0.005% OPHTH DROPS 2.5ML EACHEYE SCH (20:54)
[2019-08-28] VITALS: BP 110/64
[2019-08-28 04:00] VITALS: BP 97/65
[2019-08-28] MEDS: METRONIDAZOLE 500 MG PREMIX 100 ML IV SCH ×3 (06:01→21:50)
[2019-08-28 07:07] LABS: HEMATOCRIT. 27.6 % (42.0-52.0); HEMOGLOBIN. 9.4 g/dL (14.0-18.0); MEAN CORPUSCULAR HEMOGLOBIN 33.9 pg (28.0-32.0); MEAN CORPUSCULAR VOLUME 99.6 fL (80.0-94.0); MEAN PLATELET VOLUME 8.4 fl (7.4-10.4); PLATELET 144 x1000/uL (130-400); RED BLOOD CELL COUNT 2.77 mill/uL (4.7-6.1); RED CELL DISTRIBUTION WIDTH 13.4 % (11.6-14.6)
[2019-08-28 08:20] VITALS: BP 107/62
[2019-08-28] MEDS: TIMOLOL MALEATE 0.5% OPHTH DROPS 5ML RIGHTEYE SCH ×2 (08:47→21:53)
[2019-08-28] MEDS: ONDANSETRON HCL 4MG/2ML INJ IV PRN (08:47)
[2019-08-28] MEDS: BRIMONIDINE 0.2% OPHTH DROPS 5ML RIGHTEYE SCH ×2 (08:48→21:52)
[2019-08-28] MEDS: GABAPENTIN 300MG CAPSULE PO SCH ×3 (08:48→16:05)
[2019-08-28] MEDS: APIXABAN 5 MG TABLET PO SCH ×2 (08:48→21:50)
[2019-08-28] MEDS: TAMSULOSIN HCL 0.4MG SR CAPSULE PO SCH (08:48)
[2019-08-28] MEDS: MESALAMINE 400 MG CAPSULE.DR PO SCH ×3 (08:48→16:05)
[2019-08-28] MEDS: AMLODIPINE 10MG TABLET PO SCH (08:49)
[2019-08-28] MEDS: CEFEPIME 2,000 MG in DEXT 5% WATER 100 ML IV SCH ×2 (10:48→21:50)
[2019-08-28] MEDS: SODIUM CHLORIDE 0.9% 1,000 ML IV SCH (11:30)
[2019-08-28 12:44] LABS: PLATELET ESTIMATE NORMAL
[2019-08-28 12:45] VITALS: BP 110/64
[2019-08-28 16:22] VITALS: BP 130/75
[2019-08-28] MEDS ORDERED: MICAFUNGIN 100 MG in SODIUM CHLORIDE 0.9% 100 ML IV SCH (18:00)
[2019-08-28 20:00] VITALS: BP 122/70
[2019-08-28] MEDS: FAMOTIDINE 20MG TABLET PO SCH (21:50)
[2019-08-28] MEDS: ATORVASTATIN CALCIUM 20MG TABLET PO SCH (21:50)
[2019-08-28] MEDS: LATANOPROST 0.005% OPHTH DROPS 2.5ML EACHEYE SCH (21:51)
[2019-08-29] VITALS (7 sets, daily range): BP systolic 103–135; BP diastolic 59–78
[2019-08-29] MEDS: METRONIDAZOLE 500 MG PREMIX 100 ML IV SCH ×3 (05:43→21:16)
[2019-08-29] MEDS: SODIUM CHLORIDE 0.9% 1,000 ML IV SCH (06:36)
[2019-08-29 08:06] LABS: HEMATOCRIT. 26.6 % (42.0-52.0); HEMOGLOBIN. 9.1 g/dL (14.0-18.0); MEAN CORPUSCULAR HEMOGLOBIN 33.6 pg (28.0-32.0); MEAN CORPUSCULAR VOLUME 98.8 fL (80.0-94.0); MEAN PLATELET VOLUME 8.1 fl (7.4-10.4); PLATELET 119 x1000/uL (130-400); RED BLOOD CELL COUNT 2.69 mill/uL (4.7-6.1); RED CELL DISTRIBUTION WIDTH 13.8 % (11.6-14.6)
[2019-08-29 08:09] LABS: HIV SCREEN 4G Non Reactive (Non Reactive)
[2019-08-29] MEDS: AMLODIPINE 10MG TABLET PO SCH (08:41)
[2019-08-29] MEDS: APIXABAN 5 MG TABLET PO SCH ×2 (08:41→21:15)
[2019-08-29] MEDS: MESALAMINE 400 MG CAPSULE.DR PO SCH ×3 (08:41→18:11)
[2019-08-29] MEDS: CEFEPIME 2,000 MG in DEXT 5% WATER 100 ML IV SCH ×2 (08:42→22:32)
[2019-08-29] MEDS: GABAPENTIN 300MG CAPSULE PO SCH ×3 (08:42→18:12)
[2019-08-29] MEDS: TAMSULOSIN HCL 0.4MG SR CAPSULE PO SCH (08:42)
[2019-08-29] MEDS: BRIMONIDINE 0.2% OPHTH DROPS 5ML RIGHTEYE SCH ×2 (08:43→21:15)
[2019-08-29] MEDS: TIMOLOL MALEATE 0.5% OPHTH DROPS 5ML RIGHTEYE SCH ×2 (08:43→21:15)
[2019-08-29 11:45] LABS: PLATELET ESTIMATE DECREASED
[2019-08-29] MEDS: ONDANSETRON HCL 4MG/2ML INJ IV PRN (16:56)
[2019-08-29] MEDS ORDERED: SORBITOL 70% SOLN 30ML PO NR (17:30)
[2019-08-29] MEDS: ATORVASTATIN CALCIUM 20MG TABLET PO SCH (21:15)
[2019-08-29] MEDS: ACETAMINOPHEN 325MG TABLET PO PRN (21:15)
[2019-08-29] MEDS: LATANOPROST 0.005% OPHTH DROPS 2.5ML EACHEYE SCH (21:15)
[2019-08-29] MEDS: FAMOTIDINE 20MG TABLET PO SCH (21:15)
[2019-08-29] MEDS: SENNOSIDES 8.6MG TABLET PO SCH (21:15)
[2019-08-29] MEDS: LACTULOSE 20G/30ML UDC PO SCH (21:15)
[2019-08-30] VITALS: BP 98/60
[2019-08-30] MEDS: SODIUM CHLORIDE 0.9% 1,000 ML IV SCH ×2 (03:56→21:11)
[2019-08-30 04:05] VITALS: BP 121/55
[2019-08-30] MEDS: METRONIDAZOLE 500 MG PREMIX 100 ML IV SCH ×3 (05:45→21:10)
[2019-08-30 07:32] LABS: HEMATOCRIT. 26.8 % (42.0-52.0); HEMOGLOBIN. 9.1 g/dL (14.0-18.0); MEAN CORPUSCULAR HEMOGLOBIN 33.4 pg (28.0-32.0); MEAN CORPUSCULAR VOLUME 98.7 fL (80.0-94.0); MEAN PLATELET VOLUME 8.4 fl (7.4-10.4); PLATELET 118 x1000/uL (130-400); RED BLOOD CELL COUNT 2.71 mill/uL (4.7-6.1)
[2019-08-30 07:36] LABS: PROTHROMBIN TIME 85.5 sec (9.6-11.0)
[2019-08-30 08:00] VITALS: BP 116/62
[2019-08-30 08:12] LABS: INR 9.1
[2019-08-30] MEDS: APIXABAN 5 MG TABLET PO SCH (09:00)
[2019-08-30] MEDS: MESALAMINE 400 MG CAPSULE.DR PO SCH ×3 (09:52→17:32)
[2019-08-30] MEDS: AMLODIPINE 10MG TABLET PO SCH (09:53)
[2019-08-30] MEDS: DOCUSATE SODIUM 250MG CAPSULE PO SCH ×2 (09:53→17:35)
[2019-08-30] MEDS: TAMSULOSIN HCL 0.4MG SR CAPSULE PO SCH (09:54)
[2019-08-30] MEDS: BRIMONIDINE 0.2% OPHTH DROPS 5ML RIGHTEYE SCH ×2 (09:54→21:09)
[2019-08-30] MEDS: TIMOLOL MALEATE 0.5% OPHTH DROPS 5ML RIGHTEYE SCH ×2 (09:54→21:09)
[2019-08-30] MEDS: GABAPENTIN 300MG CAPSULE PO SCH ×3 (09:54→17:32)
[2019-08-30] MEDS: CEFEPIME 2,000 MG in DEXT 5% WATER 100 ML IV SCH ×2 (10:48→22:27)
[2019-08-30 10:59] LABS: PROTHROMBIN TIME 92.8 sec (9.6-11.0)
[2019-08-30 12:00] VITALS: BP 127/72
[2019-08-30 13:16] LABS: PLATELET ESTIMATE DECREASED
[2019-08-30] MEDS ORDERED: PHYTONADIONE 10 MG in DEXTROSE 5% WATER 49 ML IV SCH (14:30)
[2019-08-30 16:00] VITALS: BP 116/67
[2019-08-30] MEDS: ONDANSETRON HCL 4MG/2ML INJ IV PRN (17:13)
[2019-08-30 20:38] VITALS: BP 123/67
[2019-08-30] MEDS: ATORVASTATIN CALCIUM 20MG TABLET PO SCH (21:09)
[2019-08-30] MEDS: LACTULOSE 20G/30ML UDC PO SCH (21:09)
[2019-08-30] MEDS: LATANOPROST 0.005% OPHTH DROPS 2.5ML EACHEYE SCH (21:09)
[2019-08-30] MEDS: ACETAMINOPHEN 325MG TABLET PO PRN (21:10)
[2019-08-30] MEDS: ZOLPIDEM TARTRATE 5MG TABLET PO PRN (21:10)
[2019-08-30] MEDS: FAMOTIDINE 20MG TABLET PO SCH (21:10)
[2019-08-30] MEDS: SENNOSIDES 8.6MG TABLET PO SCH (21:10)
[2019-08-30 21:25] LABS: PROTHROMBIN TIME 67.8 sec (9.6-11.0)
[2019-08-30 21:46] LABS: INR 7.2
[2019-08-31] VITALS (14 sets, daily range): BP systolic 101–128; BP diastolic 51–72
[2019-08-31] MEDS: METRONIDAZOLE 500 MG PREMIX 100 ML IV SCH ×3 (06:15→22:23)
[2019-08-31] MEDS: TIMOLOL MALEATE 0.5% OPHTH DROPS 5ML RIGHTEYE SCH ×2 (09:00→21:59)
[2019-08-31] MEDS: DOCUSATE SODIUM 250MG CAPSULE PO SCH ×2 (09:00→17:03)
[2019-08-31] MEDS: AMLODIPINE 10MG TABLET PO SCH (09:00)
[2019-08-31] MEDS: GABAPENTIN 300MG CAPSULE PO SCH ×3 (09:00→17:02)
[2019-08-31] MEDS: TAMSULOSIN HCL 0.4MG SR CAPSULE PO SCH (09:00)
[2019-08-31] MEDS: BRIMONIDINE 0.2% OPHTH DROPS 5ML RIGHTEYE SCH ×2 (09:00→21:59)
[2019-08-31 09:13] LABS: HEMATOCRIT. 22.4 % (42.0-52.0); HEMOGLOBIN. 7.8 g/dL (14.0-18.0); MEAN CORPUSCULAR HEMOGLOBIN 33.8 pg (28.0-32.0); MEAN CORPUSCULAR VOLUME 97.1 fL (80.0-94.0); MEAN PLATELET VOLUME 7.9 fl (7.4-10.4); PLATELET 89 x1000/uL (130-400); RED CELL DISTRIBUTION WIDTH 14.6 % (11.6-14.6)
[2019-08-31 09:22] LABS: INR 3.2; PROTHROMBIN TIME 30.7 sec (9.6-11.0)
[2019-08-31 10:28] LABS: PLATELET ESTIMATE DECREASED
[2019-08-31] MEDS: MESALAMINE 400 MG CAPSULE.DR PO SCH ×3 (12:09→17:02)
[2019-08-31] MEDS: CEFEPIME 2,000 MG in DEXT 5% WATER 100 ML IV SCH ×2 (12:18→22:23)
[2019-08-31] MEDS ORDERED: PHYTONADIONE 10 MG in DEXTROSE 5% WATER 49 ML IV ONE (13:00)
[2019-08-31] MEDS: SODIUM CHLORIDE 0.9% 1,000 ML IV SCH (13:42)
[2019-08-31] MEDS: ATORVASTATIN CALCIUM 20MG TABLET PO SCH (21:58)
[2019-08-31] MEDS: SENNOSIDES 8.6MG TABLET PO SCH (21:58)
[2019-08-31] MEDS: FAMOTIDINE 20MG TABLET PO SCH (21:58)
[2019-08-31] MEDS: LACTULOSE 20G/30ML UDC PO SCH (21:59)
[2019-08-31] MEDS: LATANOPROST 0.005% OPHTH DROPS 2.5ML EACHEYE SCH (21:59)
[2019-09-01] VITALS (9 sets, daily range): BP systolic 99–127; BP diastolic 58–76
[2019-09-01] MEDS: ZOLPIDEM TARTRATE 5MG TABLET PO PRN (00:45)
[2019-09-01] MEDS: SODIUM CHLORIDE 0.9% 1,000 ML IV SCH ×2 (04:16→10:58)
[2019-09-01] MEDS: METRONIDAZOLE 500 MG PREMIX 100 ML IV SCH ×2 (06:53→13:57)
[2019-09-01 07:04] LABS: HEMATOCRIT. 24.5 % (42.0-52.0); HEMOGLOBIN. 8.3 g/dL (14.0-18.0); MEAN CORPUSCULAR HEMOGLOBIN 32.9 pg (28.0-32.0); MEAN CORPUSCULAR VOLUME 96.9 fL (80.0-94.0); PLATELET 108 x1000/uL (130-400); RED BLOOD CELL COUNT 2.53 mill/uL (4.7-6.1); RED CELL DISTRIBUTION WIDTH 14.9 % (11.6-14.6)
[2019-09-01 07:23] LABS: INR 3.9; PROTHROMBIN TIME 37.7 sec (9.6-11.0)
[2019-09-01 07:51] LABS: PHOSPHORUS 1.2 mg/dL (2.5-4.9)
[2019-09-01] MEDS: DOCUSATE SODIUM 250MG CAPSULE PO SCH ×2 (09:00→19:07)
[2019-09-01] MEDS: GABAPENTIN 300MG CAPSULE PO SCH ×3 (09:17→19:06)
[2019-09-01] MEDS: MESALAMINE 400 MG CAPSULE.DR PO SCH ×3 (09:18→19:07)
[2019-09-01] MEDS: TIMOLOL MALEATE 0.5% OPHTH DROPS 5ML RIGHTEYE SCH ×2 (09:18→21:50)
[2019-09-01] MEDS: BRIMONIDINE 0.2% OPHTH DROPS 5ML RIGHTEYE SCH ×2 (09:18→21:51)
[2019-09-01] MEDS: TAMSULOSIN HCL 0.4MG SR CAPSULE PO SCH (09:21)
[2019-09-01] MEDS: AMLODIPINE 10MG TABLET PO SCH (09:22)
[2019-09-01] MEDS: CEFEPIME 2,000 MG in DEXT 5% WATER 100 ML IV SCH (10:45)
[2019-09-01] MEDS ORDERED: POTASSIUM PHOS,M-BASIC-D-BASIC 15 MMOL in DEXT 5% WATER 245 ML IV ONE (13:15)
[2019-09-01] MEDS ORDERED: PHYTONADIONE 10MG/ML AMP SUBCUT NR (18:15)
[2019-09-01] MEDS: LACTULOSE 20G/30ML UDC PO SCH (21:00)
[2019-09-01 21:07] LABS: PLATELET ESTIMATE DECREASED
[2019-09-01] MEDS: LATANOPROST 0.005% OPHTH DROPS 2.5ML EACHEYE SCH (21:49)
[2019-09-01] MEDS: ATORVASTATIN CALCIUM 20MG TABLET PO SCH (21:51)
[2019-09-01] MEDS: FAMOTIDINE 20MG TABLET PO SCH (21:51)
[2019-09-01] MEDS: SENNOSIDES 8.6MG TABLET PO SCH (21:51)
[2019-09-02] VITALS (33 sets, daily range): BP systolic 81–137; BP diastolic 50–68
[2019-09-02] MEDS: METRONIDAZOLE 500 MG PREMIX 100 ML IV SCH ×2 (00:55→06:37)
[2019-09-02] MEDS: CEFEPIME 2,000 MG in DEXT 5% WATER 100 ML IV SCH ×2 (00:56→11:38)
[2019-09-02] MEDS: ZOLPIDEM TARTRATE 5MG TABLET PO PRN (02:42)
[2019-09-02] MEDS: SODIUM CHLORIDE 0.9% 1,000 ML IV SCH (06:38)
[2019-09-02 07:54] LABS: HEMOGLOBIN. 8.4 g/dL (14.0-18.0); MEAN CORPUSCULAR VOLUME 98.5 fL (80.0-94.0); MEAN PLATELET VOLUME 8.2 fl (7.4-10.4); PLATELET 86 x1000/uL (130-400); RED BLOOD CELL COUNT 2.54 mill/uL (4.7-6.1); RED CELL DISTRIBUTION WIDTH 15.7 % (11.6-14.6)
[2019-09-02 08:01] LABS: PROTHROMBIN TIME 54.7 sec (9.6-11.0)
[2019-09-02 08:43] LABS: INR 5.8
[2019-09-02] MEDS: TAMSULOSIN HCL 0.4MG SR CAPSULE PO SCH (09:00)
[2019-09-02] MEDS: DOCUSATE SODIUM 250MG CAPSULE PO SCH ×2 (09:00→17:00)
[2019-09-02] MEDS: AMLODIPINE 10MG TABLET PO SCH (09:00)
[2019-09-02] MEDS ORDERED: SODIUM BICARBONATE 8.4% 1 MEQ/ML 50ML SYR IV SCH (10:15)
[2019-09-02] MEDS ORDERED: PHYTONADIONE 10MG/ML AMP SUBCUT SCH (10:45)
[2019-09-02] MEDS: MESALAMINE 400 MG CAPSULE.DR PO SCH ×3 (11:07→17:00)
[2019-09-02] MEDS: BRIMONIDINE 0.2% OPHTH DROPS 5ML RIGHTEYE SCH ×2 (11:09→21:33)
[2019-09-02] MEDS: TIMOLOL MALEATE 0.5% OPHTH DROPS 5ML RIGHTEYE SCH ×2 (11:11→21:33)
[2019-09-02] MEDS: GABAPENTIN 300MG CAPSULE PO SCH ×3 (11:52→17:00)
[2019-09-02 15:24] LABS: BG BASE EXCESS -16.9 mmol/L (-2.0-2.0); BG CARBOXYHEMOGLOBIN 0.5 % (0.5-1.5); BG DEOXYHEMOGLOBIN 8.8 % (0.0-5.0); BG FRACTION INSPIRED OXYGEN 32; BG HCO3 ACT 8.8 mmol/L (22.0-26.0); BG METHEMOGLOBIN 0.1 % (0.0-1.5); BG OXYGEN SATURATION 91.1 % (92.0-98.5); BG OXYHEMOGLOBIN 90.6 % (94.0-97.0); BG PCO2 20.9 mmHg (35.0-45.0); BG PO2 76.4 mmHg (75.0-100.0); BG SAMPLE SITE RIGHT RADIAL; BG TOTAL HEMOGLOBIN 8.5 g/dL (12.0-18.0); BG VENT MODE NASAL CANNULA
[2019-09-02] MEDS: SODIUM BICARBONATE 100 MEQ in SODIUM CHLORIDE 0.45% 1,000 ML IV SCH (15:27)
[2019-09-02 17:31] LABS: PLATELET ESTIMATE DECREASED
[2019-09-02] MEDS: ONDANSETRON HCL 4MG/2ML INJ IV PRN (18:56)
[2019-09-02] MEDS: NOREPINEPHRINE 8 MG in DEXT 5% WATER 242 ML IV PRN (19:11)
[2019-09-02] MEDS: MEROPENEM 1,000 MG in SODIUM CHLORIDE 0.9% 100 ML IV SCH (20:15)
[2019-09-02] MEDS: LACTULOSE 20G/30ML UDC PO SCH (21:00)
[2019-09-02] MEDS: FLUCONAZOLE 200 MG/100ML BAG 100 ML IV SCH (21:00)
[2019-09-02] MEDS: SENNOSIDES 8.6MG TABLET PO SCH (21:00)
[2019-09-02] MEDS: FAMOTIDINE 20MG TABLET PO SCH (21:33)
[2019-09-02] MEDS: ATORVASTATIN CALCIUM 20MG TABLET PO SCH (21:33)
[2019-09-02] MEDS: DOXYCYCLINE 100 MG in DEXT 5% WATER 100 ML IV SCH (21:33)
[2019-09-02] MEDS: LATANOPROST 0.005% OPHTH DROPS 2.5ML EACHEYE SCH (21:33)
[2019-09-03] VITALS (98 sets, daily range): BP systolic 63–142; BP diastolic 18–87
[2019-09-03] MEDS: SODIUM BICARBONATE 100 MEQ in SODIUM CHLORIDE 0.45% 1,000 ML IV SCH (03:21)
[2019-09-03 04:05] LABS: BG BASE EXCESS -16.3 mmol/L (-2.0-2.0); BG CARBOXYHEMOGLOBIN 0.7 % (0.5-1.5); BG DEOXYHEMOGLOBIN 9.7 % (0.0-5.0); BG FRACTION INSPIRED OXYGEN 40; BG HCO3 ACT 8.7 mmol/L (22.0-26.0); BG METHEMOGLOBIN 0.2 % (0.0-1.5); BG OXYGEN SATURATION 90.2 % (92.0-98.5); BG OXYHEMOGLOBIN 89.4 % (94.0-97.0); BG PCO2 18.8 mmHg (35.0-45.0); BG PH 7.281 (7.350-7.450); BG PO2 69.5 mmHg (75.0-100.0); BG SAMPLE SITE RIGHT BRACHIAL; BG TOTAL HEMOGLOBIN 8.1 g/dL (12.0-18.0); BG VENT MODE NASAL CANNULA
[2019-09-03] MEDS ORDERED: SODIUM BICARBONATE 8.4% 1 MEQ/ML 50ML SYR IV NR ×3 (04:15→13:30)
[2019-09-03 05:24] LABS: HEMATOCRIT. 24.1 % (42.0-52.0); HEMOGLOBIN. 8.1 g/dL (14.0-18.0); MEAN CORPUSCULAR VOLUME 98.3 fL (80.0-94.0); MEAN PLATELET VOLUME 8.2 fl (7.4-10.4); PLATELET 71 x1000/uL (130-400); RED BLOOD CELL COUNT 2.46 mill/uL (4.7-6.1); RED CELL DISTRIBUTION WIDTH 16.1 % (11.6-14.6)
[2019-09-03 05:36] LABS: PROTHROMBIN TIME 59.5 sec (9.6-11.0)
[2019-09-03] MEDS: NOREPINEPHRINE 8 MG in DEXT 5% WATER 242 ML IV PRN (06:12)
[2019-09-03] MEDS: DOXYCYCLINE 100 MG in DEXT 5% WATER 100 ML IV SCH ×2 (06:12→19:33)
[2019-09-03 06:50] LABS: INR 6.2
[2019-09-03] MEDS ORDERED: PHENYLEPHRINE 20 MG in DEXT 5% WATER 248 ML IV PRN (07:30)
[2019-09-03] MEDS: DOCUSATE SODIUM 250MG CAPSULE PO SCH ×2 (08:34→17:00)
[2019-09-03] MEDS: MESALAMINE 400 MG CAPSULE.DR PO SCH ×3 (08:35→17:00)
[2019-09-03] MEDS: AMLODIPINE 10MG TABLET PO SCH (08:36)
[2019-09-03] MEDS: GABAPENTIN 300MG CAPSULE PO SCH ×3 (08:36→17:00)
[2019-09-03] MEDS: TAMSULOSIN HCL 0.4MG SR CAPSULE PO SCH (08:36)
[2019-09-03] MEDS: SODIUM BICARBONATE 150 MEQ in DEXTROSE 5% WATER 1,000 ML IV SCH ×2 (08:40→23:24)
[2019-09-03] MEDS ORDERED: FENTANYL CITRATE/PF 500 MCG in SODIUM CHLORIDE 0.9% 40 ML IV PRN (09:30)
[2019-09-03] MEDS: VASOPRESSIN 10 UNIT in SODIUM CHLORIDE 0.9% 99.5 ML IV PRN ×4 (09:50→22:30)
[2019-09-03] MEDS ORDERED: VECURONIUM BROMIDE 10 MG/VIAL IV ONE (09:58)
[2019-09-03] MEDS ORDERED: ETOMIDATE 2MG/ML 10ML VIAL IV ONE (09:58)
[2019-09-03] MEDS ORDERED: SODIUM CHLORIDE 0.9% 10ML VIAL ONE (09:58)
[2019-09-03] MEDS ORDERED: MIDAZOLAM HCL 50 MG in DEXTROSE 5% WATER 40 ML IV PRN (10:00)
[2019-09-03] MEDS ORDERED: PHENYLEPHRINE 80 MG in DEXT 5% WATER 492 ML IV PRN (10:00)
[2019-09-03] MEDS ORDERED: LIDOCAINE HCL 1% 20ML VIAL (Pyxis) INJ ONE (10:17)
[2019-09-03 10:31] LABS: PLATELET ESTIMATE DECREASED
[2019-09-03 10:49] LABS: BG BASE EXCESS -19.1 mmol/L (-2.0-2.0); BG CARBOXYHEMOGLOBIN 0.3 % (0.5-1.5); BG DEOXYHEMOGLOBIN 10.2 % (0.0-5.0); BG FRACTION INSPIRED OXYGEN 60; BG HCO3 ACT 8.8 mmol/L (22.0-26.0); BG METHEMOGLOBIN 0.3 % (0.0-1.5); BG OXYGEN SATURATION 89.7 % (92.0-98.5); BG OXYHEMOGLOBIN 89.2 % (94.0-97.0); BG PCO2 27.7 mmHg (35.0-45.0); BG PH 7.119 (7.350-7.450); BG PO2 82.7 mmHg (75.0-100.0); BG SAMPLE SITE RIGHT RADIAL; BG TIDAL VOLUME(mL) 500 mL; BG TOTAL HEMOGLOBIN 9.9 g/dL (12.0-18.0); BG VENT MODE VENT - A/C; BG VENT RATE 18 set
[2019-09-03] MEDS: PHYTONADIONE 10MG/ML AMP SUBCUT SCH (11:32)
[2019-09-03] MEDS ORDERED: NOREPINEPHRINE 32 MG in DEXT 5% WATER 468 ML IV PRN (12:00)
[2019-09-03] MEDS: IPRATROPIUM/ALBUTEROL 0.5-3(2.5)MG/3ML NEB HHN SCH ×2 (12:11→16:05)
[2019-09-03 13:14] LABS: BG BASE EXCESS -15.6 mmol/L (-2.0-2.0); BG CARBOXYHEMOGLOBIN 0.7 % (0.5-1.5); BG DEOXYHEMOGLOBIN 8.1 % (0.0-5.0); BG FRACTION INSPIRED OXYGEN 100; BG HCO3 ACT 11.4 mmol/L (22.0-26.0); BG OXYGEN SATURATION 91.8 % (92.0-98.5); BG OXYHEMOGLOBIN 91.2 % (94.0-97.0); BG PCO2 30.9 mmHg (35.0-45.0); BG PH 7.185 (7.350-7.450); BG PO2 80.4 mmHg (75.0-100.0); BG SAMPLE SITE LEFT BRACHIAL; BG TIDAL VOLUME(mL) 500 mL; BG TOTAL HEMOGLOBIN 9.3 g/dL (12.0-18.0); BG VENT MODE VENT - A/C; BG VENT RATE 24 set
[2019-09-03] MEDS: TIMOLOL MALEATE 0.5% OPHTH DROPS 5ML RIGHTEYE SCH ×2 (13:35→21:07)
[2019-09-03] MEDS: BRIMONIDINE 0.2% OPHTH DROPS 5ML RIGHTEYE SCH ×2 (13:35→21:08)
[2019-09-03] MEDS: PHENYLEPHRINE 80 MG in DEXT 5% WATER 492 ML IV PRN (17:55)
[2019-09-03 18:20] LABS: BG BASE EXCESS -9.9 mmol/L (-2.0-2.0); BG CARBOXYHEMOGLOBIN 0.3 % (0.5-1.5); BG DEOXYHEMOGLOBIN 2.6 % (0.0-5.0); BG FRACTION INSPIRED OXYGEN 100; BG HCO3 ACT 14.7 mmol/L (22.0-26.0); BG METHEMOGLOBIN 0.2 % (0.0-1.5); BG OXYGEN SATURATION 97.4 % (92.0-98.5); BG OXYHEMOGLOBIN 96.9 % (94.0-97.0); BG PH 7.339 (7.350-7.450); BG PO2 112.7 mmHg (75.0-100.0); BG SAMPLE SITE LEFT RADIAL; BG TIDAL VOLUME(mL) 500 mL; BG TOTAL HEMOGLOBIN 8.7 g/dL (12.0-18.0); BG VENT MODE VENT - A/C; BG VENT RATE 28 set
[2019-09-03] MEDS: MEROPENEM 1,000 MG in SODIUM CHLORIDE 0.9% 100 ML IV SCH (18:41)
[2019-09-03] MEDS: FLUCONAZOLE 200 MG/100ML BAG 100 ML IV SCH (19:33)
[2019-09-03] MEDS: SENNOSIDES 8.6MG TABLET PO SCH (21:00)
[2019-09-03] MEDS: ATORVASTATIN CALCIUM 20MG TABLET PO SCH (21:00)
[2019-09-03] MEDS: FAMOTIDINE 20MG TABLET PO SCH (21:00)
[2019-09-03] MEDS: LACTULOSE 20G/30ML UDC PO SCH (21:00)
[2019-09-03] MEDS: LATANOPROST 0.005% OPHTH DROPS 2.5ML EACHEYE SCH (21:07)
[2019-09-04] VITALS (61 sets, daily range): BP systolic 35–118; BP diastolic 15–59
[2019-09-04] MEDS: PHENYLEPHRINE 80 MG in DEXT 5% WATER 492 ML IV PRN ×2 (00:23→09:18)
[2019-09-04] MEDS: IPRATROPIUM/ALBUTEROL 0.5-3(2.5)MG/3ML NEB HHN SCH ×3 (02:23→13:15)
[2019-09-04] MEDS: VASOPRESSIN 10 UNIT in SODIUM CHLORIDE 0.9% 99.5 ML IV PRN ×3 (03:16→13:00)
[2019-09-04] MEDS: DOXYCYCLINE 100 MG in DEXT 5% WATER 100 ML IV SCH (05:17)
[2019-09-04] MEDS: DOPAMINE 800MG PREMIX (DOUBLE) 250 ML IV PRN ×2 (06:37→13:06)
[2019-09-04 06:43] LABS: BASOPHILS % 0.4 % (0.0-2.0); EOSINOPHILS % 0.6 % (0.0-5.0); HEMATOCRIT. 27.4 % (42.0-52.0); LYMPHOCYTES % 7.1 % (20.0-50.0); MEAN CORPUSCULAR HEMOGLOBIN 32.9 pg (28.0-32.0); MEAN CORPUSCULAR VOLUME 99.9 fL (80.0-94.0); MONOCYTES % 7.8 % (2.0-8.0); NEUTROPHILS % 84.1 % (40.0-76.0); PLATELET 69 x1000/uL (130-400); RED BLOOD CELL COUNT 2.74 mill/uL (4.7-6.1); RED CELL DISTRIBUTION WIDTH 15.9 % (11.6-14.6)
[2019-09-04 07:00] LABS: BG BASE EXCESS -14.2 mmol/L (-2.0-2.0); BG CARBOXYHEMOGLOBIN 0.3 % (0.5-1.5); BG DEOXYHEMOGLOBIN 10.4 % (0.0-5.0); BG FRACTION INSPIRED OXYGEN 100; BG METHEMOGLOBIN 0.3 % (0.0-1.5); BG OXYGEN SATURATION 89.5 % (92.0-98.5); BG PCO2 35.3 mmHg (35.0-45.0); BG PH 7.184 (7.350-7.450); BG PO2 70.5 mmHg (75.0-100.0); BG SAMPLE SITE RIGHT FEMORAL; BG TIDAL VOLUME(mL) 500 mL; BG TOTAL HEMOGLOBIN 9.3 g/dL (12.0-18.0); BG VENT MODE VENT - A/C; BG VENT RATE 28 set
[2019-09-04] MEDS ORDERED: SODIUM BICARBONATE 8.4% 1 MEQ/ML 50ML SYR IV NR (07:30)
[2019-09-04] MEDS: DOCUSATE SODIUM 250MG CAPSULE PO SCH (08:57)
[2019-09-04] MEDS: AMLODIPINE 10MG TABLET PO SCH (09:00)
[2019-09-04] MEDS: TAMSULOSIN HCL 0.4MG SR CAPSULE PO SCH (09:00)
[2019-09-04] MEDS: MESALAMINE 400 MG CAPSULE.DR PO SCH ×2 (09:00→13:00)
[2019-09-04] MEDS: GABAPENTIN 300MG CAPSULE PO SCH ×2 (09:00→13:00)
[2019-09-04] MEDS: BRIMONIDINE 0.2% OPHTH DROPS 5ML RIGHTEYE SCH (09:40)
[2019-09-04] MEDS: TIMOLOL MALEATE 0.5% OPHTH DROPS 5ML RIGHTEYE SCH (09:40)
[2019-09-04] MEDS: PHYTONADIONE 10MG/ML AMP SUBCUT SCH (09:40)
[2019-09-04 09:43] LABS: BG BASE EXCESS -11.6 mmol/L (-2.0-2.0); BG CARBOXYHEMOGLOBIN 0.3 % (0.5-1.5); BG DEOXYHEMOGLOBIN 15.4 % (0.0-5.0); BG FRACTION INSPIRED OXYGEN 100; BG HCO3 ACT 13.9 mmol/L (22.0-26.0); BG METHEMOGLOBIN 0.1 % (0.0-1.5); BG OXYGEN SATURATION 84.5 % (92.0-98.5); BG OXYHEMOGLOBIN 84.2 % (94.0-97.0); BG PCO2 30.2 mmHg (35.0-45.0); BG PH 7.281 (7.350-7.450); BG PO2 56.9 mmHg (75.0-100.0); BG SAMPLE SITE LEFT BRACHIAL; BG TIDAL VOLUME(mL) 500 mL; BG VENT MODE VENT - A/C; BG VENT RATE 30 set
[2019-09-04] MEDS: SODIUM BICARBONATE 150 MEQ in DEXTROSE 5% WATER 1,000 ML IV SCH (10:18)
[2019-09-04] MEDS ORDERED: SODIUM BICARBONATE 8.4% MEQ/ML 50ML VIAL IV ONE (14:29)
[2019-09-04] MEDS ORDERED: DEXTROSE 50% WATER 50ML VIAL IV ONE (14:29)
[2019-09-04] MEDS ORDERED: CALCIUM CHLORIDE 1GM/10ML SYR IV ONE (14:29)
[2019-09-04] MEDS ORDERED: EPINEPHRINE 0.1MG/ML (1:10,000) 10ML SYR ONE (14:29)
== END 2019-09-04 14:29 | disposition expired | DRG 871 ==
LOC: ER 13:05 → EDBEDREQSVC 14:58 → EDBEDREQ 14:58 → 6WST 16:11 → EDBEDREQ 16:13 → EDBEDREQSVC 16:13 → ENRESERV 20:33 → MICUNO 09-02 17:38
PROVIDERS: ADMIT Internal Medicine; ATTEND Internal Medicine
PROC: 30233K1 Transfusion of Nonautologous Frozen Plasma into Peripheral Vein, Percutaneous Approach (ICD-10-PCS; 2019-08-30)
PROC: 0BH17EZ Insertion of Endotracheal Airway into Trachea, Via Natural or Artificial Opening (ICD-10-PCS; principal; 2019-09-03)
PROC: 5A1945Z Respiratory Ventilation, 24-96 Consecutive Hours (ICD-10-PCS; 2019-09-03)
PROC: 02HV33Z Insertion of Infusion Device into Superior Vena Cava, Percutaneous Approach (ICD-10-PCS; 2019-09-03)
PROC: B548ZZA Ultrasonography of Superior Vena Cava, Guidance (ICD-10-PCS; 2019-09-03)
PROC: 5A12012 Performance of Cardiac Output, Single, Manual (ICD-10-PCS; 2019-09-04)
DX: A41.9 Sepsis, unspecified organism (principal); K85.90 Acute pancreatitis without necrosis or infection, unspecified; E43 Unspecified severe protein-calorie malnutrition; G93.41 Metabolic encephalopathy; J96.01 Acute respiratory failure with hypoxia; R65.21 Severe sepsis with septic shock; D65 Disseminated intravascular coagulation [defibrination syndrome]; E87.1 Hypo-osmolality and hyponatremia; E87.2 Acidosis; K51.911 Ulcerative colitis, unspecified with rectal bleeding; I13.0 Hypertensive heart and chronic kidney disease with heart failure and stage 1 through stage 4 chronic kidney disease, or unspecified chronic kidney disease; R18.8 Other ascites; R04.2 Hemoptysis; N13.6 Pyonephrosis; N13.8 Other obstructive and reflux uropathy; K81.0 Acute cholecystitis; N17.9 Acute kidney failure, unspecified; E88.09 Other disorders of plasma-protein metabolism, not elsewhere classified; N18.9 Chronic kidney disease, unspecified; D53.9 Nutritional anemia, unspecified; G89.29 Other chronic pain; I25.10 Atherosclerotic heart disease of native coronary artery without angina pectoris; I48.0 Paroxysmal atrial fibrillation; N28.89 Other specified disorders of kidney and ureter; I50.9 Heart failure, unspecified; R74.0 Nonspecific elevation of levels of transaminase and lactic acid dehydrogenase [LDH]; K76.0 Fatty (change of) liver, not elsewhere classified; E11.22 Type 2 diabetes mellitus with diabetic chronic kidney disease; E86.9 Volume depletion, unspecified; R31.0 Gross hematuria; M06.9 Rheumatoid arthritis, unspecified; R00.1 Bradycardia, unspecified; K56.41 Fecal impaction; R16.0 Hepatomegaly, not elsewhere classified; T50.905A Adverse effect of unspecified drugs, medicaments and biological substances, initial encounter; K29.90 Gastroduodenitis, unspecified, without bleeding; N40.1 Benign prostatic hyperplasia with lower urinary tract symptoms; R33.8 Other retention of urine; K74.60 Unspecified cirrhosis of liver; I45.10 Unspecified right bundle-branch block; K29.70 Gastritis, unspecified, without bleeding; K75.89 Other specified inflammatory liver diseases; Z86.711 Personal history of pulmonary embolism; Z86.718 Personal history of other venous thrombosis and embolism; Y92.89 Other specified places as the place of occurrence of the external cause; Z87.442 Personal history of urinary calculi; Z79.01 Long term (current) use of anticoagulants; Z95.828 Presence of other vascular implants and grafts; Z79.899 Other long term (current) drug therapy; Z88.0 Allergy status to penicillin; Z68.23 Body mass index [BMI] 23.0-23.9, adult
CPT/HCPCS: 31500; 36415; 36556; 36600; 71045; 71250; 74176; 74177; 74181; 76700; 76937; 78582; 80048; 80076; 80305; 80320; 81003; 82105; 82140; 82248; 82270; 82375; 82728; 82805; 82962; 83540; 83550; 83605; 83735; 83880; 84100; 84145; 84153; 85240; 85362; 85379; 85384; 85613; 85732; 86038; 86225; 86635; 86682; 86705; 86709; 86803; 86850; 86900; 86927; 87015; 87045; 87070; 87340; 87389; 87427; 87449; 88108; 89055; 93005; 93306; 93970; 94002; 94003; 94640; 96365; 96375; 99291; A9558; C1725; C1752; C1887; C1893; J0692; J1265; J1450; J1885; J1956; J2185; J2248; J2270; J2370; J2405; J2543; J3430; J3490; J7030; J7040; J7050; J7060; J7070; J7620; P9017; Q9967; A4315; G0103; G0480